=== PATIENT | female | born 1950 | race Caucasian/White ===

== ENCOUNTER → 2017-02-18 | Outpatient (CLI) | payer OTHER ==
[~2017-02-18] MED LIST: ALPR.5 PO; CELE10TA PO; CELE40TA PO; COMMODE 3-IN-11 MIS; LEVO88TA2 PO; MELO-1 PO; MULT-65 PO; PRIL20TA2 PO; SIMV20TA PO; SIMV80TA PO; VITA500C18 PO; VITACAP7 PO; WALKER WHEELS/F1 MIS
== END ==
LOC: CPRE 09:06
PROVIDERS: ATTEND Orthopaedic Surgery
DX: M16.11 Unilateral primary osteoarthritis, right hip (principal)

== ENCOUNTER 2017-03-06 05:29 | Inpatient (IN) | payer OTHER, MEDICARE ==
[~2017-03-06] VITALS: Ht 162.6 cm; Wt 71.5 kg
[~2017-03-06 05:29] MED LIST changes: -CELE10TA PO; -COMMODE 3-IN-11 MIS; -SIMV80TA PO; -WALKER WHEELS/F1 MIS
[2017-03-06] MEDS ORDERED: CHLORHEXIDINE GLUCONATE 2 % 1 PACK (2 CLOTHS) TOPICAL PRN (06:00)
[2017-03-06] MEDS ORDERED: SODIUM CHLORID 0.9% 500 ML IV PRN (06:00)
[2017-03-06] MEDS ORDERED: TRANEXAMIC ACID IV SCH ×2 (06:00→10:00)
[2017-03-06] MEDS ORDERED: VANCOMYCIN 1000 MG/NS 250 ML (for <70 kg) IV SCH ×2 (06:00)
[2017-03-06] MEDS ORDERED: EXPAREL PERI-ARTICULAR INJECTION (TOTAL VOL. 60 ML) P-ARTICULR SCH ×2 (06:00)
[2017-03-06] MEDS ORDERED: METOPROLOL TARTRATE 25 MG TAB PO PRN (06:00)
[2017-03-06] MEDS ORDERED: LACTATED RINGER'S 1000 ML IV PRN (06:00)
[2017-03-06] MEDS ORDERED: POVIDONE IODINE 5% (ANTISEPSIS KIT) 4 APPLICATIONS EACH NARE PRN (06:00)
[2017-03-06] MEDS ORDERED: INSULIN HUMAN REGULAR 1,000 UNITS/10 ML VIAL SQ PRN (06:00)
[2017-03-06] MEDS ORDERED: POVIDONE IODINE 7.5% SCRUB 118 ML BOTTLE TOPICAL SCH (06:00)
[2017-03-06] MEDS ORDERED: SODIUM CHLORIDE 0.9% IV SCH ×2 (06:00→10:00)
[2017-03-06] MEDS ORDERED: ceFAZolin 2 GM PREMIX 50 ML IV SCH (06:00)
[2017-03-06] MEDS ORDERED: DEXAMETHASONE SOD PHOS 20 MG/5 ML VIAL ONE (06:10)
[2017-03-06] MEDS ORDERED: DEXAMETHASONE SOD PHOS 20 MG/5 ML VIAL IV PUSH SCH (06:15)
[2017-03-06] MEDS ORDERED: GENTAMICIN SULFATE 80 MG/2 ML VIAL ONE (06:16)
[2017-03-06] MEDS ORDERED: ACETAMINOPHEN 1000 MG/100 ML 100 ML IV ONE (06:31)
[2017-03-06] MEDS ORDERED: FAMOTIDINE 20 MG/2 ML VIAL ONE (06:32)
--- NOTE | 2017-03-06 06:45 | HHI.DCPOC ---
Discharge Care Plan Diagnosis: (1) Osteoarthritis of right hip (2) Status post total hip replacement, right Your Health Problems Are: Difficulty with ADL Goals to Promote Your Health * To prevent worsening of your condition and complications * To maintain your health at the optimal level Directions to Meet Your Goals Take your medications as prescribed Follow your dietary instruction Follow activity as directed Keep your appointments as scheduled Take your immunizations and boosters as scheduled If your symptoms worsen call your PCP, if no PCP go to Urgent Care Center or Emergency Room Smoking is Dangerous to Your Health. Avoid second hand smoke Call the 24-hour hour crisis hotline for domestic abuse at Dean Adler Mar 06, 2017 06:45
--- NOTE | 2017-03-06 06:46 | HHI.FF ---
Face to Face Verification Diagnosis: (1) Osteoarthritis of right hip (2) Status post total hip replacement, right Physical Therapy Gait training, Transfer training, bed to chair Hip: Total hip Right LE Weight Bearing: WB as tolerated Right LE Range of Motion: Active ROM Nursing Nursing: Dane teaching, Dressing changes Dressing Changes: Daily dressing change I have seen patient Kylie Boswell on 03/06/17. My clinical findings support the need for the requested home health care services because: Limited ability to care for self High risk of falls I certify that my clinical findings support that this patient is homebound because: Post-op weakness Unsteady gait/balance Dean Adler Mar 06, 2017 06:45
[2017-03-06] MEDS ORDERED: WALKER WHEELS/F1 MIS (06:47)
[2017-03-06] MEDS ORDERED: COMMODE 3-IN-11 MIS (06:47)
[2017-03-06] MEDS ORDERED: BISACODYL 10 MG SUPP RECTAL PRN (08:30)
[2017-03-06] MEDS ORDERED: MORPHINE SULFATE 4 MG/ML INJ IV PUSH PRN (08:30)
[2017-03-06] MEDS ORDERED: diphenhydrAMINE HCL 50 MG/ML VIAL IV PUSH PRN (08:30)
[2017-03-06] MEDS ORDERED: ALPRAZolam 0.5 MG TAB PO PRN (08:30)
[2017-03-06] MEDS ORDERED: ONDANSETRON HCL 4 MG/2 ML VIAL IVP PRN (08:30)
[2017-03-06] MEDS ORDERED: ALUMINUM/MAGNESIUM/SIMETH 30 ML CUP PO PRN (08:30)
[2017-03-06] MEDS ORDERED: SODIUM CHLORIDE 0.9% FLUSH 5 ML FLUSH IVF PRN (08:30)
[2017-03-06] MEDS ORDERED: ZOLPIDEM TARTRATE 5 MG TAB PO PRN (08:30)
[2017-03-06] MEDS ORDERED: NALOXONE HCL 0.4 MG/ML AMP IV PUSH PRN (08:30)
[2017-03-06] MEDS ORDERED: MAGNESIUM HYDROXIDE SUSP 30 ML CUP PO PRN (08:30)
[2017-03-06] MEDS ORDERED: ACETAMINOPHEN/HYDROcodone 325 MG/5 MG TAB PO PRN (08:30)
--- NOTE | 2017-03-06 08:33 | PD.OP ---
cc: Jean Pierre Johnson MD Operative Report Date of Surgery: Mar 06, 2017 Preoperative Diagnosis: Right hip severe osteoarthritis Postoperative Diagnosis: Same Procedure: Right total hip arthroplasty Anesthesia: Gen. Surgeon: Jean Pierre Johnson Rf Test Engineer(s): AMADA Mcmahan The surgical procedure was assisted by my Advanced Registered Nurse Practitioner. My FLOOR REPRESENTATIVE presence was necessary throughout this case for the manipulation and positioning of the surgical extremity. My FLOOR REPRESENTATIVE was assisting me throughout the duration of this procedure. The skill set of an Advance Registered Nurse Practitioner was medically necessary to complete this procedure. During the surgical case, the surgical garment inspector was working at the back table and the Advance Registered Nurse Practitioner was directly assisting me. Operation and Findings: IMPLANT DESCRIPTION: 1. [place] Gription Cup, acetabular size 50. 2. [place] AltrX polyethylene, neutral. 4. [place] femoral stem size 11, no collar, standard offset. 5. Femoral head/neck metal, 32, +1. ESTIMATED BLOOD LOSS: 250 cc. JUSTIFICATION FOR PROCEDURE: The patient has end-stage osteoarthritis to the hip. There is an attached conservative measures pathway form in the chart that describes the nonoperative measures that were undertaken prior to consideration of surgical management. The patient understood the risks and benefits of surgical management. See my office notes for further details. PROCEDURE: The patient was brought back to the operative theatre. Adequate anesthesia was obtained. The patient received intravenous vancomycin and Ancef. The patient was carefully placed on the operative table. The lower extremity was prepped and draped in the usual sterile fashion. Fluoroscopic images were obtained. We made a standard anterior incision over the hip. We dissected through the TFL fascia, exposing the anterior capsule. Arthrotomy was performed in a T-shaped fashion. The capsule was tagged with a #2 FiberWire. End-stage arthritis was identified. Osteotomy was performed through the femoral neck exposing the acetabulum. Remnants of the labrum were resected and osteophytes were removed. We sequentially reamed the acetabulum. We trialed the hip and placed the final cup into position. This was done under fluoroscopic guidance to obtain the appropriate inclination and anteversion. A manhole cover was placed into the acetabular component. We then placed the final polyethylene into position and confirmed that it was well seated. Capsular attachments on the calcar and the inner aspect of the greater trochanter were resected. On the proximal aspect of the femur we used a rongeur , box osteotome, canal finder, sequential broaches and lateralizing rasp. We calcar planed the proximal femur. Then thoroughly irrigated the wound. We trialed the hip with the appropriate size stem. We placed the final stem in to position and trialed again. The hip was stable while it was externally rotated 70 degrees when the leg was lowered to the floor. The final head was applied, and final fluoroscopic images were obtained. The wound was thoroughly irrigated again. Interarticular injection of liposomal bupivacaine was given. The capsule was closed with #2 FiberWire and #1 Vicryl. The deep fascia was closed with a #2 Stratafix, followed by 2-0 Vicryl in the skin and Dermabond dressing. Postop plan is to weight-bear as tolerated. DVT prophylaxis will be performed with Leia, AMAN castillo, early mobilization, and Lovenox followed by aspirin. Jean Pierre Johnson MD Mar 06, 2017 08:33
[2017-03-06] MEDS ORDERED: Post-op Orders (for Pharmacy) MISC XX ONE (08:56)
--- NOTE | 2017-03-06 08:57 | RADRPT ---
EXAM DATE/TIME: 03/06/2017 07:08 [facility] COMPARISON: No previous studies available for comparison. INDICATIONS : Right total hip arthroplasty. MEDICAL HISTORY : Unobtainable. SURGICAL HISTORY : Unobtainable. ENCOUNTER: Initial ACUITY: 1 day PAIN SCORE: Non-responsive. LOCATION: Right hip. FINDINGS: 2 views of the hip reveal a total hip prosthesis in good position. No fracture or dislocation is obse rved. A small amount of air is seen within the joint. Soft tissue swelling is noted. CONCLUSION: Total hip arthroplasty in good position. Jaiden Webb Jr., MD on March 06, 2017 at 8:55 Board Certified Radiologist. This report was verified electronically.
[2017-03-06] MEDS ORDERED: DO NOT ADM ANY ANTICOAGULANT DRUGS PRN (08:58)
[2017-03-06] MEDS: CITALOPRAM HYDROBROMIDE 40 MG TAB PO SCH (09:00)
[2017-03-06] MEDS: SODIUM CHLORIDE 0.9% FLUSH 5 ML FLUSH IVF SCH ×2 (09:00→20:19)
[2017-03-06] MEDS: SODIUM CHLOR 0.9% 1000 ML INJ 1,000 ML IV SCH ×2 (09:03→18:29)
[2017-03-06] MEDS ORDERED: *MEPERIDINE 25 MG INJ VIAL PERIprocedural Use ONLY ONE (09:09)
[2017-03-06] MEDS ORDERED: LORazepam 2 MG/ML VIAL ONE (09:10)
[2017-03-06] MEDS ORDERED: *morphine SULFATE 8 MG/ML PERIprocedure ONLY ONE ×3 (09:21→09:45)
[2017-03-06] MEDS ORDERED: LORazepam 2 MG/ML VIAL IV PUSH SCH (10:15)
--- NOTE | 2017-03-06 10:45 | RADRPT ---
EXAM DATE/TIME: 03/06/2017 09:31 [facility] COMPARISON: HIP RIGHT (AP&LAT 2/3VWS) WO AP PELVIS, March 06, 2017, 7:08. INDICATIONS : Post op right hip surgery. MEDICAL HISTORY : Unobtainable. SURGICAL HISTORY : Unobtainable. ENCOUNTER: Initial ACUITY: 1 day PAIN SCORE: Non-responsive. LOCATION: Right hip. FINDINGS: Left hip arthroplasty in anatomic alignment. Hardware components are well positioned without signific ant acute fracture. Postoperative changes in the left hip soft tissues. Dre and screw fixation hardwa re in the lower lumbar spine. CONCLUSION: 1. Left hip arthroplasty in anatomic alignment without acute fracture. Frankie Baez MD on March 06, 2017 at 10:42 Board Certified Radiologist. This report was verified electronically.
[2017-03-06] MEDS ORDERED: PANTOPRAZOLE SOD 20 MG DELAYED RELEASE TAB PO SCH (11:30)
[2017-03-06] MEDS: PRAVASTATIN SOD 40 MG TAB PO SCH (11:30)
[2017-03-06 12:00] VITALS: BP 104/64; PULSE 108; RESP 17; TEMP 97.3; O2SAT 96
[2017-03-06] MEDS ORDERED: ONDANSETRON HCL 4 MG/2 ML VIAL IV PUSH ONE (12:00)
[2017-03-06] MEDS ORDERED: MIDAZOLAM HCL 2 MG/2 ML VIAL IV ONE (12:00)
[2017-03-06] MEDS ORDERED: NEOSTIGMINE 3 MG/3 ML SYR IV ONE (12:00)
[2017-03-06] MEDS ORDERED: ePHEDrine/NS 25 MG/5 ML SYR IV ONE (12:00)
[2017-03-06] MEDS ORDERED: GLYCOPYRROLATE 1 MG/5 ML SYRINGE IV PUSH ONE (12:00)
[2017-03-06] MEDS ORDERED: ROCURONIUM INJ 50 MG/5 ML SYRINGE IV PUSH ONE (12:00)
[2017-03-06] MEDS ORDERED: LIDOCAINE HCL 1% PF 5 ML AMPULE OTHER ONE (12:00)
[2017-03-06] MEDS ORDERED: PROPOFOL 200 MG/20 ML AMP IV ONE (12:00)
--- NOTE | 2017-03-06 13:55 | PD.CONS ---
[facility] Consult Requested By Orthopedic surgery Reason for Consult Medical management Primary Care Physician Ke Hodge M.D. Diagnoses: History of Present Illness 66-year-old female with a history of lipidemia, hypothyroidism, right hip OA who despite medical management continue to have severe right hip affecting her daily living up activity including ambulation. Underwent right total hip arthroplasty today 03/06/17.[facility] was consulted for management. Patient denies any chest pain or shortness of breath. Review of Systems Except as stated in HPI: all other systems reviewed are Neg Past Family Social History Allergies: Coded Allergies: celecoxib (Unverified Allergy, Mild, ANGINA, 02/18/17) thioridazine (Unverified Allergy, Mild, RESP. DISTRESS, 02/18/17) Past Medical History Right hip OA Hypothyroidism Hyperlipidemia Past Surgical History Status post Right total hip arthroplasty 03/06/17 Lumbar fusion 2005 Reported Medications See EMR Family History History positive for heart disease, Social History Patient denies tobacco alcohol or illicit drug intake Physical Exam Vital Signs Vital Signs Date Time Temp Pulse Resp B/P (MAP) Pulse Ox O2 Delivery O2 Flow Rate FiO2 03/06/17 12:55 Nasal Cannula 2.00 03/06/17 12:00 97.3 108 17 104/64 (77) 96 03/06/17 11:00 92 12 112/59 (76) 95 Nasal Cannula 2 03/06/17 10:00 98.2 75 12 115/63 (80) 96 Nasal Cannula 2 03/06/17 09:45 84 12 115/61 (79) 96 Nasal Cannula 2 03/06/17 09:30 93 12 117/59 (78) 96 Nasal Cannula 2 03/06/17 09:15 95 15 136/73 (94) 95 Nasal Cannula 2 03/06/17 09:03 98.0 101 17 156/81 (106) 99 Nasal Cannula 2 03/06/17 05:59 98.2 74 16 142/81 (101) 97 Physical Exam GENERAL: This is a well-nourished, well-developed patient, in no apparent distress. SKIN: No rashes, ecchymoses or lesions. Cool and dry. HEAD: Atraumatic. Normocephalic. No temporal or scalp tenderness. EYES: Pupils equal round and reactive. Extraocular motions intact. No scleral icterus. No injection or drainage. ENT: Nose without bleeding, purulent drainage or septal hematoma. Throat without erythema, tonsillar hypertrophy or exudate. Uvula midline. Airway patent. NECK: Trachea midline. No JVD or lymphadenopathy. Supple, nontender, no meningeal signs. CARDIOVASCULAR: Regular rate and rhythm without murmurs, gallops, or rubs. RESPIRATORY: Clear to auscultation. Breath sounds equal bilaterally. No wheezes , rales, or rhonchi. GASTROINTESTINAL: Abdomen soft, non-tender, nondistended. No hepato-splenomegaly , or palpable masses. No guarding. MUSCULOSKELETAL: Extremities without clubbing, cyanosis, or edema. Right hip repair-neurovascular intact NEUROLOGICAL: Awake and alert. Cranial nerves II through XII intact. Motor and sensory grossly within normal limits. Five out of 5 muscle strength in all muscle groups. Normal speech. Assessment and Plan Assessment and Plan 66-year-old female with Status post Right total hip arthroplasty Management per orthopedic surgery Continue current postop care Lovenox for DVT prophylaxis PT consult to treat and eval History of hyperlipidemia, hypothyroidism and other chronic medical conditions Continue with outpatient medications DVT prophylaxis: Lovenox Thank you for this consultation Code Status Full code Discussed Condition With Patient Fabio Beard MD Mar 06, 2017 13:54
[2017-03-06 16:05] VITALS: BP 90/57; PULSE 94; RESP 16; TEMP 96.5; O2SAT 94
[2017-03-06] MEDS: ACETAMINOPHEN/HYDROcodone 325 MG/5 MG TAB PO PRN ×2 (18:32→22:38)
[2017-03-06 19:30] VITALS: BP 101/65; PULSE 85; RESP 20; TEMP 96.3; O2SAT 97
[2017-03-06 21:03] VITALS: O2SAT 94
[2017-03-06 23:50] VITALS: BP 108/62; PULSE 89; RESP 17; TEMP 99.7; O2SAT 93
[2017-03-07] MEDS: ACETAMINOPHEN/HYDROcodone 325 MG/5 MG TAB PO PRN ×3 (02:41→12:09)
[2017-03-07 04:27] VITALS: BP 110/56; PULSE 103; RESP 17; TEMP 99.1; O2SAT 97
[2017-03-07] MEDS: SODIUM CHLOR 0.9% 1000 ML INJ 1,000 ML IV SCH ×2 (04:41→14:29)
[2017-03-07] MEDS ORDERED: LEVOTHYROXINE SODIUM 88 MCG TAB PO SCH (06:00)
[2017-03-07 07:35] VITALS: BP 101/58; PULSE 87; RESP 19; TEMP 99.8; O2SAT 94
[2017-03-07] MEDS ORDERED: DEXAMETHASONE SOD PHOS 20 MG/5 ML VIAL IV ONE (07:45)
[2017-03-07] MEDS ORDERED: ENOXAPARIN SODIUM 40 MG/0.4 ML SYRINGE SQ SCH (08:00)
[2017-03-07 08:22] LABS: HEMATOCRIT 25.1 % (35.0-46.0); MEAN CELL VOLUME 96.4 FL (80.0-100.0); MEAN CORPUSCULAR HEMOGLOBIN 31.8 PG (27.0-34.0); PLATELET COUNT 218 TH/MM3 (150-450); RED BLOOD COUNT 2.61 MIL/MM3 (4.00-5.30); RED CELL DISTRIBUTION WIDTH 13.3 % (11.6-17.2); REVIEW FLAG FINAL; WHITE BLOOD COUNT 8.1 TH/MM3 (4.0-11.0)
[2017-03-07] MEDS: PRAVASTATIN SOD 40 MG TAB PO SCH (08:22)
[2017-03-07] MEDS: CITALOPRAM HYDROBROMIDE 40 MG TAB PO SCH (08:22)
[2017-03-07] MEDS: SODIUM CHLORIDE 0.9% FLUSH 5 ML FLUSH IVF SCH (08:27)
[2017-03-07] MEDS ORDERED: INFLUENZA VIRUS VACCINE (QUADRIVALENT) 0.5 ML SYR IM ONE (10:00)
[2017-03-07 11:58] VITALS: BP 105/60; PULSE 79; RESP 19; TEMP 99.3; O2SAT 94
--- NOTE | 2017-03-07 12:15 | HHI.PR ---
Subjective Remarks Patient seen and examined Complains of mild soreness otherwise stable Currently afebrile Objective Vitals Vital Signs Date Time Temp Pulse Resp B/P (MAP) Pulse Ox O2 Delivery O2 Flow Rate FiO2 03/07/17 11:58 99.3 79 19 105/60 (75) 94 03/07/17 08:17 Room Air 03/07/17 07:35 99.8 87 19 101/58 (72) 94 03/07/17 04:27 99.1 103 17 110/56 (74) 97 03/06/17 23:50 99.7 89 17 108/62 (77) 93 03/06/17 21:03 94 Nasal Cannula 2.00 03/06/17 19:30 96.3 85 20 101/65 (77) 97 03/06/17 16:05 96.5 94 16 90/57 (68) 94 03/06/17 12:55 Nasal Cannula 2.00 I/O 03/06/17 03/06/17 03/06/17 03/07/17 03/07/17 03/07/17 06:59 14:59 22:59 06:59 14:59 22:59 Intake Total 50 ml 1700 ml 1044 ml 1003 ml Output Total 300 ml Balance 50 ml 1400 ml 1044 ml 1003 ml Intake Oral 360 ml 480 ml IV Total 50 ml 200 ml 684 ml 523 ml Other 1500 ml Output Estimated Blood Loss 300 ml # Voids 1 2 # Bowel Movements 0 0 Result Diagram: 03/07/17 0640 Imaging Last Impressions Hip and Pelvis X-Ray 03/06/17 0829 Signed Impressions: Service Date/Time: Monday, March 06, 2017 09:31 - CONCLUSION: 1. Left hip arthroplasty in anatomic alignment without acute fracture. Frankie Baez MD Hip X-Ray 03/06/17 0000 Signed Impressions: Service Date/Time: Monday, March 06, 2017 07:08 - CONCLUSION: Total hip arthroplasty in good position. Jaiden Webb Jr., MD Objective Remarks GENERAL: NAD SKIN: Warm and dry. HEAD: Normocephalic. EYES: No scleral icterus. No injection or drainage. NECK: Supple, trachea midline. No JVD or lymphadenopathy. CARDIOVASCULAR: Regular rate and rhythm without murmurs, gallops, or rubs. RESPIRATORY: Breath sounds equal bilaterally. No accessory muscle use. GASTROINTESTINAL: Abdomen soft, non-tender, nondistended. MUSCULOSKELETAL: No cyanosis, or edema. Right hip repair-neurovascular intact BACK: Nontender without obvious deformity. No CVA tenderness. A/P Assessment and Plan 66-year-old female with Status post Right total hip arthroplasty Management per orthopedic surgery Continue current postop care Lovenox for DVT prophylaxis PT to treat and eval Monitor for postop anemia History of hyperlipidemia, hypothyroidism and other chronic medical conditions Continue with outpatient medications DVT prophylaxis: Fabio Mcdaniel MD Mar 07, 2017 12:15
--- NOTE | 2017-03-07 12:29 | PD.ORT.PN ---
Subjective Post Op Day #: 1 Subjective Remarks Patient is OOB in chair with c/o moderate pain to the right hip. Patient unsure if she is able to go home today. Patient will see how she feels later today. Objective Vitals Vital Signs Date Time Temp Pulse Resp B/P (MAP) Pulse Ox O2 Delivery O2 Flow Rate FiO2 03/07/17 11:58 99.3 79 19 105/60 (75) 94 03/07/17 08:17 Room Air 03/07/17 07:35 99.8 87 19 101/58 (72) 94 03/07/17 04:27 99.1 103 17 110/56 (74) 97 03/06/17 23:50 99.7 89 17 108/62 (77) 93 03/06/17 21:03 94 Nasal Cannula 2.00 03/06/17 19:30 96.3 85 20 101/65 (77) 97 03/06/17 16:05 96.5 94 16 90/57 (68) 94 03/06/17 12:55 Nasal Cannula 2.00 I/O 03/06/17 03/06/17 03/06/17 03/07/17 03/07/17 03/07/17 06:59 14:59 22:59 06:59 14:59 22:59 Intake Total 50 ml 1700 ml 1044 ml 1003 ml Output Total 300 ml Balance 50 ml 1400 ml 1044 ml 1003 ml Intake Oral 360 ml 480 ml IV Total 50 ml 200 ml 684 ml 523 ml Other 1500 ml Output Estimated Blood Loss 300 ml # Voids 1 2 # Bowel Movements 0 0 Result Diagram: 03/07/17 0640 Procedures Right JALYN Objective Remarks The patient's dressing is C/D/I. EHL/TA/G intact. Moderate swelling to right hip. No calf tenderness or swelling. 2+ pedal pulse. + SILT. Assessment & Plan Ortho Post Op Day #: 1 Problem List: Assessment and Plan POD #1: Right JALYN 1. WBAT RLE 2. Lovenox followed by ASA for DVT prophylaxis 3. Ice to the right knee PRN 4. Anticipatory discharge home with home health today or Saturday 5. F/U with Dr. Johnson or AMADA Tierney in the office as previously scheduled. Dean Adler Mar 07, 2017 12:29
[2017-03-07] MEDS ORDERED: DOCUSATE SODIUM 100 MG CAP PO SCH (21:00)
[2017-03-07] MEDS ORDERED: MULTIVITAMINS/MINERALS THERAPEUTIC TAB PO SCH (21:00)
--- NOTE | 2017-03-09 17:53 | HHI.DS ---
Discharge Summary Admission Date Mar 06, 2017 at 05:29 Discharge Date: Mar 07, 2017 Admitting Diagnosis Right hip OA Status post total hip replacement, right. Diagnosis: (1) Osteoarthritis of right hip Diagnosis: Principal ICD Codes: M16.11 - Unilateral primary osteoarthritis, right hip (2) Status post total hip replacement, right Diagnosis: Principal ICD Codes: Z96.641 - Presence of right artificial hip joint Procedures Right JALYN Brief History This is a 66 year old female patient with severe OA of the right hip CBC/BMP: 03/07/17 0640 Significant Findings Laboratory Tests Test 03/07/17 06:40 Red Blood Count 2.61 MIL/MM3 (4.00-5.30) Hemoglobin 8.3 GM/DL (11.6-15.3) Hematocrit 25.1 % (35.0-46.0) PE at Discharge The patient's dressing is C/D/I. EHL/TA/G intact. Moderate swelling to right hip. No calf tenderness or swelling. 2+ pedal pulse. + SILT. Hospital Course The patient was admitted to the hospital for severe OA of the right hip to have a right JALYN. The patient tolerated surgery well with no complication. The patient is WBAT on the RLE. The patient is on a regular diet. The patient is on Lovenox followed by ASA for DVT prophylaxis. The patient was discharged home with home health and will f/u with Dr. Johnson or AMADA Tierney in the office as previously scheduled. Pt Condition on Discharge: Stable Discharge Disposition: Disch w/ Home Health Serv Discharge Instructions Diet Instructions: As Tolerated, No Restrictions Activities You Can Perform: Weight Bearing as Kathi Activities to Avoid: Strenuous Activity Follow up Referrals: Orthopedics with Jean Pierre Johnson MD New Medications: Commode 3-in-1 (Commode 3-in-1) 1 Mis Mis EA .ROUTE DIRECTED, #1 0 Refills Walker with Front Wheels (Walker with Front Wheels) 1 Mis Mis EA .ROUTE DIRECTED, #1 0 Refills Continued Medications: Alprazolam (Xanax) 0.5 Mg Tab 0.5 MG PO HS PRN for ANXIETY, TAB 0 Refills Ascorbic Acid ER (Vitamin C Sr) 500 Mg Caper 1000 MG PO DAILY for Nutritional Supplement, CAP 0 Refills B-Complex Vitamins (B Complex) 1 Cap 1 CAP PO DAILY for Nutritional Supplement, #30 CAP 0 Refills Citalopram (Celexa) 40 Mg Tab 40 MG PO DAILY for Control Depression, #30 TAB 0 Refills Levothyroxine (Levothyroxine) 88 Mcg Tab 88 MCG PO DAILY for Thyroid, #30 TAB 0 Refills Multiple Vitamin (Multi-Vitamin Daily) 1 Tab Tab 1 TAB PO DAILY for Nutritional Supplement, TAB 0 Refills Omeprazole Magnesium (Prilosec) 20 Mg Tab 20 MG PO DAILY Simvastatin (Simvastatin) 20 Mg Tab 20 MG PO DAILY for Cholesterol Management, #30 TAB 0 Refills Discontinued Medications: Meloxicam (Meloxicam) 15 Mg Tab 15 MG PO DAILY for Arthritis Pain, #30 TAB 0 Refills Dean Adler Mar 09, 2017 17:53
== END 2017-03-07 16:00 | disposition home health service (06) | DRG 470 ==
LOC: HSDI 05:29 → N06B 12:22
PROVIDERS: ADMIT Orthopaedic Surgery; ATTEND Orthopaedic Surgery
PROC: 0SR90JA Replacement of Right Hip Joint with Synthetic Substitute, Uncemented, Open Approach (ICD-10-PCS; principal; 2017-03-06 06:38)
DX: M16.11 Unilateral primary osteoarthritis, right hip (principal); E03.9 Hypothyroidism, unspecified; E78.5 Hyperlipidemia, unspecified; Z98.1 Arthrodesis status
CPT/HCPCS: 73502; 76000; 85027; 86850; 86900; 86901; 90471; 90686; 94150; C1776; C9290; G0008; J0131; J0690; J1100; J1580; J1650; J2060; J2175; J2250; J2270; J2405; J2710; J3010; J3370; J7030; J7050; J7120; L1830; Q2038